=== PATIENT | female | born 1995 | race Caucasian/White ===

== ENCOUNTER 2024-12-12 09:41 | Inpatient (IN) | payer BC ==
[~2024-12-12] VITALS: Ht 180.3 cm; Wt 118.6 kg
--- NOTE | 2024-12-12 10:09 | Physician Documentation ---
History of Present Illness General Chief Complaint: Mental Health Eval Stated Complaint: TINGLING ON FACE Time Seen by MD: 09:53 History of Present Illness Initial Comments The patient is a 29-year-old female with a history of depression with suicidal ideation, PCOS (takes spironolactone) and type 2 insulin-dependent diabetes (taking long-acting insulin at night, 13-15 units) who has been feeling depressed for the past few months. She has gradually gotten worse and has been thinking about overdosing on medication. Medication Reconciliation Allergies: Coded Allergies: No Known Allergies (Unverified , 12/12/24) Scheduled Insulin Glargine,Hum.rec.anlog (Basaglar Kwikpen U-100), 13 UNITS SQ DAILY, (Reported) [place]-3/Dha/Epa/Fish Oil (Fish Oil 1,000 mg Softgel), 1 CAP PO BID, (Reported) Omeprazole (Omeprazole), 1 CAP PO DAILY, (Reported) Spironolactone (Spironolactone), 1 TAB PO DAILY, (Reported) Physical Exam Physical Exam Vital Signs: Temperature: 98.5, Source: Temporal, Heart Rate: 121, Respiratory Rate: 16, BP: 185/100, Pulse Oximetry: 99, Weight: 118.180 Oxygen Flow Rate: 0 Progress Progress Note 12/12/2024, 17:30: This patient is currently medically cleared for evaluation and disposition by [facility]. Results/Orders Results/Orders Orders - SUMA HAWK MD Med Rec (12/12/24 10:07) 1799.11 (12/12/24 10:07) Close Observation Level (12/12/24 10:07) Covid19 Binax Poc Result Entry (12/12/24 10:07) Regular Diet (12/12/24 Lunch) Completed Orders - SUMA HAWK MD Acetaminophen 325mg Tablet (Tylenol Tabl (12/12/24 10:10) Cbc/Diff (12/12/24 10:07) Hcg, Ur Ql (12/12/24 10:07) Drug Screen, Urine (12/12/24 10:07) Ethanol (12/12/24 10:07) TSH (12/12/24 10:07) BMP (12/12/24 10:07) Ua With Microscopic (12/12/24 10:37) Lorazepam Tablet (Ativan Tablet) (12/12/24 12:45) Insulin Glargine,Hum.Rec.Anlog (Lantus I (12/12/24 14:05) Medications Received in ER Medications (Trade) Dose Ordered Sig/Rocky Route PRN Reason Start Time Stop Time Status Last Admin Dose Admin (Ativan tablet) 1 mg ONCE ONCE PO 12/12/24 12:45 12/12/24 12:46 DC 12/12/24 13:02 1 MG (Lantus inj) 15 unit ONCE ONCE SQ 12/12/24 14:05 12/12/24 14:16 DC 12/12/24 14:32 15 UNIT Vital Signs 12/12/24 12/12/24 12/12/24 09:47 11:19 13:02 Temp 98.5 Pulse 121 Resp 16 16 B/P (MAP) 185/100 Pulse Ox 99 O2 Flow Rate 0 Laboratory Tests Test 12/12/24 10:25 12/12/24 10:37 12/12/24 11:17 White Blood Count 9.4 Red Blood Count 5.32 Hemoglobin 15.1 Hematocrit 43.7 Mean Corpuscular Volume 82.1 Mean Corpuscular Hemoglobin 28.5 Mean Corpuscular Hemoglobin Concent 34.7 Red Cell Distribution Width 12.8 Platelet Count 299 Mean Platelet Volume 9.2 Neutrophils (%) (Auto) 68.8 Lymphocytes (%) (Auto) 22.5 Monocytes (%) (Auto) 6.7 Eosinophils (%) (Auto) 0.9 Basophils (%) (Auto) 1.1 H Neutrophils # (Auto) 6.5 Lymphocytes # (Auto) 2.1 Monocytes # (Auto) 0.6 Eosinophils # (Auto) 0.1 Basophils # (Auto) 0.1 CBC Comment Sodium Level 137 Potassium Level 3.9 Chloride Level 100 Carbon Dioxide Level 26.2 Anion Gap 11 Blood Urea Nitrogen 9 Creatinine 0.49 Estimated GFR/1.73 m2 > 90 BUN/Creatinine Ratio 18.4 Glucose Level 280 H Calcium Level 9.4 Albumin 3.9 Thyroid Stimulating Hormone (TSH) 1.32 Chemistry Comments Ethyl Alcohol Level < 10 Urine Specimen Description Cln catch midstream Urine Color Yellow Urine Clarity Clear Urine pH 6.0 Urine Specific [place] >=1.030 Urine Protein >=300 H Urine Glucose (UA) >=1000 H Urine Ketones 15 H Urine Occult Blood Trace-intact Urine Nitrite Negative Urine Bilirubin Negative Urine Urobilinogen 0.2 Urine Leukocyte Esterase Negative Urine RBC 0-2 Urine WBC 0-4 Urine Squamous Epithelial Cells Moderate Urine Bacteria None seen Urine Mucus None seen Volume Urine Centrifuged 10 ml Urine HCG, Qualitative Negative Urine Comment Urine Opiates Screen Negative Urine Methadone Screen Negative Urine Fentanyl Screen Negative Urine Barbiturates Screen Negative Urine Phencyclidine Screen Negative Urine Amphetamines Screen Negative Urine Benzodiazepines Screen Negative Urine Cocaine Screen Negative Urine Cannabinoids Screen Negative Drug Screen Comment SARS-CoV-2 Antigen (Rapid) Negative Medical Decision Making Findings This 29-year-old female comes in with suicidal ideation and has a plan to o verdose on medications. She is also complaining of headache which I am going to treat with a acetaminophen. I am putting this patient on a 179 hold. Departure Disposition: 30 STILL A PATIENT Impression: Primary Impression: Suicidal ideation Referrals: NO PRIMARY CARE PROVIDER (PCP) Signature Scribe Signature: . Attestation: . SUMA HAWK MD Dec 12, 2024 10:09
[2024-12-12 10:42] LABS: MEAN PLATELET VOLUME 9.2 FL (7.4-10.4); RED CELL DISTRIBUTION WIDTH 12.8 % (11.5-14.5)
[2024-12-12 11:10] LABS: URINE HCG NEGATIVE (NEG)
[2024-12-12 11:14] LABS: LEUKOCYTE ESTERASE ,URINE NEGATIVE (Neg); NITRITES, URINE NEGATIVE (Neg); OCCULT BLOOD,URINE TRACE-INTACT (Neg)
[2024-12-12 11:15] LABS: CREATININE 0.49 MG/DL (0.40-0.90); ETHANOL < 10 MG/DL (<10); TOTAL CARBON DIOXIDE 26.2 MMOL/L (24-32); eCRCL 188 ML/MIN; eGFR > 90 ML/MIN
[2024-12-12 11:18] LABS: UA COLLECTION TYPE CLN CATCH MIDSTREAM
[2024-12-12 11:19] LABS: URINE AMPHETAMINE SCREEN NEGATIVE (Neg); URINE BARBITUATE SCREEN NEGATIVE (Neg); URINE BENZODIAZEPINES SCREEN NEGATIVE (Neg); URINE CANNABINOID SCREEN NEGATIVE (Neg); URINE COCAINE SCREEN NEGATIVE (Neg); URINE METHADONE SCREEN NEGATIVE (Neg); URINE OPIATE SCREEN NEGATIVE (Neg); URINE PHENCYCLIDINE SCREEN NEGATIVE (Neg)
[2024-12-12 11:20] LABS: MUCUS STRANDS NONE SEEN /LPF (Neg); SQUAMOUS EPITHELIAL CELL,UR MODERATE /LPF (FEW)
[2024-12-12] MEDS ORDERED: [UNRECOGNIZED DRUG - CODE] PO (13:06)
[2024-12-12] MEDS ORDERED: INSU100I31 SQ (13:06)
[2024-12-12] MEDS ORDERED: OMEP20CA16 PO (13:06)
[2024-12-12] MEDS ORDERED: SPIR100T5 PO (13:06)
[2024-12-12] MEDS: insulin glargine (Lantus) pen - multi-dose SQ ONE (14:32)
[2024-12-12] MEDS: INSULIN LISPRO 100 UNIT/ML INSULN.PEN MULTI-DOSE SQ SCH (21:24)
[2024-12-12] MEDS: insulin glargine (Lantus) pen - multi-dose SQ SCH (21:26)
[2024-12-13] MEDS: OMEGA-3/DHA/EPA/FISH OIL 1 EACH CAPSULE.DR PO SCH (08:21)
[2024-12-13] MEDS: pantoprazole 40mg Tablet.DR PO SCH (08:21)
[2024-12-13] MEDS: insulin glargine (Lantus) pen - multi-dose SQ SCH (22:27)
[2024-12-13 23:25] VITALS: BP 132/91; PULSE 98; RESP 18; TEMP 97.4; O2SAT 98
[2024-12-13] MEDS: insulin glargine (Lantus) pen - multi-dose SQ ONE (23:25)
[2024-12-13] MEDS: INSULIN LISPRO 100 UNIT/ML INSULN.PEN MULTI-DOSE SQ ONE (23:25)
[2024-12-13 23:50] VITALS: RESP 18; O2SAT 97
[2024-12-13] MEDS ORDERED: magnesium hydroxide 30ml (MOM) UD suspension PO PRN (23:55)
[2024-12-13] MEDS ORDERED: mag hydrox/Alum hydrox/simeth 30ml oral suspension PO PRN (23:55)
[2024-12-13] MEDS ORDERED: loperamide 2mg capsule PO PRN (23:55)
[2024-12-14 07:00] VITALS: RESP 16; O2SAT 99
[2024-12-14 07:58] LABS: MEAN PLATELET VOLUME 9.4 FL (7.4-10.4); RED CELL DISTRIBUTION WIDTH 12.7 % (11.5-14.5)
[2024-12-14 08:00] VITALS: BP 132/90; PULSE 95; RESP 16; TEMP 97.4; O2SAT 98
[2024-12-14 08:23] LABS: CHOL/HDL RATIO 6.0 (0.00-4.99); CREATININE 0.71 MG/DL (0.40-0.90); LDL CHOLESTEROL 118 MG/DL (50-100); TOTAL CARBON DIOXIDE 30.8 MMOL/L (24-32); eCRCL 129 ML/MIN; eGFR > 90 ML/MIN
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
[2024-12-14 18:25] VITALS: BP 144/100; PULSE 122
[2024-12-14 19:00] VITALS: RESP 16; O2SAT 96
[2024-12-14 20:00] VITALS: BP 147/91; PULSE 108; RESP 16; TEMP 97.2; O2SAT 96
[2024-12-14] MEDS: insulin glargine (Lantus) pen - multi-dose SQ SCH (20:53)
[2024-12-14] MEDS: INSULIN LISPRO 100 UNIT/ML INSULN.PEN MULTI-DOSE SQ SCH (20:54)
--- NOTE | 2024-12-14 20:57 | HISTORY AND PHYSICAL ---
History & Physical Providers to CC ~ History of Present Illness Reason for Admit\Complaint: Suicidal ideation/ poorly controlled insulin- dependent diabetes mellit History of Present Illness This is the hospitalist history and physical exam on patients hospitalized at [facility]/ [facility]. This is a 29-year-old female who was admitted for suicidal ideation she denies being suicidal any longer the patient has poorly controlled diabetes mellitus hemoglobin A1c 10.4 in her sugars has been in the 200s in the entire hospitalization that is far the patient also has a triglyceride level of 335 and a LDL of 118 informs me she is intolerant to statins does take fish oil. I am going to adjust her diabetic insulin regimen and add cholestyramine to help with her hypertriglyceridemia and LDL levels. The patient has not no other acute medical complaints Allergies: Coded Allergies: No Known Allergies (Unverified , 12/12/24) Home Medications Home Medications Active Reported Omeprazole 20 Mg Capsule.dr 1 Cap PO DAILY Fish Oil 1,000 mg Softgel ([place]-3/Dha/Epa/Fish Oil) 300 Mg (120 Mg-180 Mg)- 1,000 Mg Capsule 1 Cap PO BID Spironolactone 100 Mg Tablet 1 Tab PO DAILY Basaglar Kwikpen U-100 (Insulin Glargine,Hum.rec.anlog) 100 Unit/Ml (3 Ml) Insuln.pen 13 Units SQ DAILY Past Medical History Past Medical History Hyperlipidemia Uncontrolled diabetes mellitus Upper GI ulcer PCOS Past Surgical History Surgical History Comment Bilateral knee surgery for patellar malalignment Family History Family History: FH: diabetes mellitus GRANDFATHER OR GRANDMOTHER, Onset:Unknown MOTHER, Onset:40's - 50 Paternal grandmother Maternal grandmother FH: diabetes mellitus GRANDFATHER OR GRANDMOTHER, Onset:Unknown MOTHER, Onset:40's - 50 Paternal grandmother Maternal grandmother FH: ovarian cancer MOTHER Past Social History Social History Comment Does not smoke, drink alcohol or use illicit drugs ROS ROS Except for positives in the HPI the rest of the 14 point review systems is negative Exam Vitals: Vital Signs Date Time Temp Pulse Resp B/P (MAP) Pulse Ox O2 Delivery O2 Flow Rate FiO2 12/14/24 18:25 122 144/100 (115) 12/14/24 08:00 97.4 16 98 Room Air 12/14/24 07:00 0.0 General: Gen. No acute distress alert and oriented, obese Lungs clear to ascultation bilaterally, no wheezes rales or rhonchi appreciated Heart normal sinus rhythm no murmurs rubs or clicks noted Abdomen soft nontender bowel sounds are normoactive Lower extremities no clubbing cyanosis, nor edema appreciated bilaterally Diagnostic Data Last Recorded Lab Results: 12/14/2472212/14/24722 Problems: (1) Suicidal ideation Status: Acute Additional Plan # suicidal ideation Followed by Psychiatry # uncontrolled diabetes mellitus Increase Lantus to 30 units Change to the high dose sliding scale Add 5 units of PC insulin # hyperlipidemia intolerant to statins Continue fish oil Start cholestyramine b.i.d. with meals # history of upper GI ulcer Continue Protonix # PCOS Continue spironolactone The hospitalist service will continue to follow the patient Date of Service: Dec 14, 2024 Billing Provider: PORFIRIO HOUSER DO Common Visit Codes: [id number] INP/OBS CARE (HIGH) PORFIRIO HOUSER DO Dec 14, 2024 20:57
[2024-12-15 07:00] VITALS: RESP 16; O2SAT 97
[2024-12-15] MEDS: BUPROPION HCL 150MG XL 24 HR 150 MG TAB PO SCH (07:37)
[2024-12-15] MEDS: INSULIN LISPRO 100 UNIT/ML INSULN.PEN MULTI-DOSE SQ SCH (07:45)
[2024-12-15 08:00] VITALS: BP 115/59; PULSE 71; RESP 16; TEMP 97; O2SAT 97
[2024-12-15 10:56] VITALS: BP 139/87; PULSE 92; RESP 16; O2SAT 97
[2024-12-15] MEDS ORDERED: BUPR-94 PO (10:58)
[2024-12-15] MEDS ORDERED: HYDR-3686 PO (10:58)
[2024-12-15] MEDS ORDERED: TEN1T PO (10:58)
[2024-12-15] MEDS ORDERED: chloestyramine/aspartame 4gm packet PO SCH (11:00)
--- NOTE | 2024-12-15 12:40 | DISCHARGE SUMMARY ---
Discharge Summary Providers to CC ~ Discharge Summary Admission Diagnosis: MDD, recurrent, moderate, MONCHO, SI Discharge Diagnosis\Comment: stable Operations\Procedures: none Consultants: none Complications: none Condition on DC: Stable 2 or more antipsychotic used: No 2/more antipsychotic addressed: No Does Patient smoke: No Smoking education given.: No *Problems/Diagnosis: (1) Suicidal ideation Status: Resolved Total Time Spent on D/C: > 30 Minutes Counseling Services Smoking & Tobacco Cessation: N/A DINO SERRANO DNP Dec 15, 2024 12:40
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
== END 2024-12-15 13:00 | disposition home or self-care (01) | DRG 885 ==
LOC: ER 09:42 → ADULT MH 12-13 15:33
PROVIDERS: ADMIT Psychiatry & Neurology Psychiatry; ATTEND Psychiatry & Neurology Psychiatry
PROC: GZHZZZZ Group Psychotherapy (ICD-10-PCS; principal; 2024-12-14)
DX: F33.2 Major depressive disorder, recurrent severe without psychotic features (principal); E11.65 Type 2 diabetes mellitus with hyperglycemia; R45.851 Suicidal ideations; E78.1 Pure hyperglyceridemia; E28.2 Polycystic ovarian syndrome; F41.0 Panic disorder [episodic paroxysmal anxiety]; Z20.822 Contact with and (suspected) exposure to COVID-19; F41.1 Generalized anxiety disorder; F42.9 Obsessive-compulsive disorder, unspecified; F43.10 Post-traumatic stress disorder, unspecified; Z87.11 Personal history of peptic ulcer disease; Z79.4 Long term (current) use of insulin; Z79.899 Other long term (current) drug therapy
CPT/HCPCS: 36415; 80048; 80053; 80061; 80305; 80320; 81001; 81025; 82948; 83036; 84443; 85025; 87081; 87811; 96372; 99285; J1815; Q0177